=== PATIENT | male | born 1960 | race Caucasian/White ===

== ENCOUNTER 2017-10-05 14:55 | Emergency (ER) | payer OTHER ==
[~2017-10-05] VITALS: Ht 177.8 cm; Wt 130.0 kg
[2017-10-05 14:58] VITALS: BP 152/93
[2017-10-05 15:25] LABS: BASOPHILS # (AUTO) 0.05 x10^3/uL (0-0.1); BASOPHILS % (AUTO) 1 % (0-1); EOSINOPHILS # (AUTO) 0.36 x10^3/uL (0-0.4); EOSINOPHILS % (AUTO) 4 % (1-7); LYMPHOCYTES # (AUTO) 1.92 x10^3/uL (1-3.4); LYMPHOCYTES % (AUTO) 24 % (22-44); MD NO; MEAN CORPUSCULAR HEMOGLOBIN 31.2 pg (27.5-34.5); MEAN CORPUSCULAR HGB CONC 34.3 g/dL (33.2-36.2); MONOCYTES # (AUTO) 0.61 x10^3/uL (0.2-0.8); MONOCYTES % (AUTO) 8 % (2-9); NEUTROPHILS # (AUTO) 5.19 x10^3/uL (1.8-6.8); NEUTROPHILS % (AUTO) 64 % (42-75); PLATELET COUNT 318 x10^3/uL (130-400); RED BLOOD COUNT 4.69 x10^6/uL (4.38-5.82); RED CELL DISTRIBUTION WIDTH 12.5 % (9.4-14.8)
[2017-10-05 15:39] LABS: ALBUMIN 3.5 g/dL (3.4-5.0); ANION GAP 8 mmol/L (5-15); CALCIUM 8.9 mg/dL (8.5-10.1); CHLORIDE 106 mmol/L (98-107)
[2017-10-05 15:44] LABS: ALANINE AMINOTRANSFERASE 41 U/L (12-78); ALKALINE PHOSPHATASE 55 U/L (45-117); BILIRUBIN,TOTAL 0.5 mg/dL (0.2-1.0); CREATININE 1.07 mg/dL (0.7-1.3); TOTAL PROTEIN 7.3 g/dL (6.4-8.2)
[2017-10-05] MEDS ORDERED: IBUPROFEN 800 MG TABLET ONE (15:58)
[2017-10-05] MEDS ORDERED: IBUPROFEN 200 MG TABLET PO ONE (16:30)
[2017-10-05] MEDS ORDERED: L.E.T SOLUTION TP ONE (16:49)
[2017-10-05] MEDS ORDERED: OMNIPAQUE 350 MG/ML, 100ML BOTTLE ONE (17:29)
[2017-10-05 17:52] LABS: MICROSCOPIC NOT IND
[2017-10-05 18:02] LABS: CULTURE INDICATED? NO
== END 2017-10-05 18:10 | disposition home or self-care (01) ==
LOC: ED 17:40
DX: K40.91 Unilateral inguinal hernia, without obstruction or gangrene, recurrent (principal)
CPT/HCPCS: 36415; 72193; 76870; 80053; 81003; 83880; 85025; 93975; 99285; Q9967

== ENCOUNTER 2017-10-16 09:32 | Day surgery (SDC) | payer OTHER ==
[~2017-10-16] VITALS: Ht 177.8 cm; Wt 128.0 kg
[2017-10-16] MEDS ORDERED: LACTATED RINGERS 1,000 ML IV SCH (10:49)
[2017-10-16] MEDS ORDERED: ACETAMINOPHEN 500 MG TABLET PO ONE (11:00)
[2017-10-16] MEDS ORDERED: GABAPENTIN 300 MG CAPSULE PO ONE (11:00)
[2017-10-16 11:23] VITALS: BP 130/85
[2017-10-16] MEDS ORDERED: MIDAZOLAM 1 MG/ML, 2ML ONE (11:30)
[2017-10-16] MEDS ORDERED: FENTANYL PF 250 MCG/5ML ONE (11:30)
[2017-10-16] MEDS ORDERED: EPINEPHRINE 1 MG/ML, 1ML ONE (11:50)
[2017-10-16] MEDS ORDERED: BUPIVACAINE/PF 0.5% ONE (11:50)
[2017-10-16] MEDS ORDERED: KETOROLAC 30 MG/1 ML ONE ×2 (12:15)
[2017-10-16] MEDS ORDERED: LIDOCAINE-MPF 2% ,5ML ONE (12:25)
[2017-10-16] MEDS ORDERED: DEXAMETHASONE 4 MG/ML, 1ML ONE (12:25)
[2017-10-16] MEDS ORDERED: SUCCINYLCHOLINE 20 MG/ML, 10ML ONE (12:25)
[2017-10-16] MEDS ORDERED: CEFAZOLIN 1,000 MG ONE ×2 (12:25)
[2017-10-16] MEDS ORDERED: ONDANSETRON 2MG/ML, 2ML ONE (12:25)
[2017-10-16] MEDS ORDERED: PROPOFOL 10 MG/ML, 20ML ONE (12:25)
[2017-10-16] MEDS ORDERED: EPHEDRINE 50 MG/ML, 1ML IM PRN (12:30)
[2017-10-16] MEDS ORDERED: HYDROmorphone 1 MG/ML, 1ML IV PRN (12:30)
[2017-10-16] MEDS ORDERED: SCOPOLAMINE PATCH, 1.5MG PATCH.TD72 TD PRN (12:30)
[2017-10-16] MEDS ORDERED: LABETALOL 5MG/ML, 20ML IV PRN (12:30)
[2017-10-16] MEDS ORDERED: ALBUTEROL/IPRATROPIUM 2.5MG/0.5MG, 3 ML NPPB PRN (12:30)
[2017-10-16] MEDS ORDERED: MIDAZOLAM 1 MG/ML, 2ML IV PRN (12:30)
[2017-10-16] MEDS ORDERED: MEPERIDINE/PF 25MG/0.5ML IVPush PRN (12:30)
[2017-10-16] MEDS ORDERED: PROMETHAZINE 25 MG/ML, 1ML IV PRN (12:30)
[2017-10-16] MEDS ORDERED: ONDANSETRON 2MG/ML, 2ML IV PRN (12:30)
[2017-10-16] MEDS ORDERED: OXYcodone 5 MG/5 ML ORAL.SOL UDC PO PRN (12:30)
[2017-10-16] MEDS ORDERED: LIDOCAINE GEL 2%, 5ML ONE (12:33)
[2017-10-16] MEDS ORDERED: FENTANYL PF 100 MCG/2ML ONE (13:20)
[2017-10-16] MEDS ORDERED: OXYcodone 5 MG/5 ML ORAL.SOL UDC ONE (13:20)
[2017-10-16] MEDS: FENTANYL PF 100 MCG/2ML IV PRN ×2 (13:27→13:35)
[2017-10-16] MEDS ORDERED: ROCURONIUM 10MG/ML,5ML ONE (15:32)
== END 2017-10-16 15:55 | disposition home or self-care (01) ==
LOC: OUT 09:32
PROVIDERS: ATTEND Surgery
DX: K40.90 Unilateral inguinal hernia, without obstruction or gangrene, not specified as recurrent (principal); K21.9 Gastro-esophageal reflux disease without esophagitis; G47.33 Obstructive sleep apnea (adult) (pediatric); E66.9 Obesity, unspecified; Z68.41 Body mass index [BMI] 40.0-44.9, adult; Z72.89 Other problems related to lifestyle; Z87.891 Personal history of nicotine dependence
CPT/HCPCS: 49505; C1781; J0171; J0330; J0690; J1100; J1885; J2250; J2405; J2704; J3010; J3490; J7120